=== PATIENT | male | born 1980 | race Caucasian/White ===

== ENCOUNTER 2019-03-01 20:19 | Emergency (ER) | payer OTHER ==
[~2019-03-01] VITALS: Ht 175.3 cm; Wt 82.6 kg
[2019-03-01] MEDS ORDERED: TRAZ-182 PO (20:57)
[2019-03-01] MEDS ORDERED: FLUO10CA26 PO (20:57)
[2019-03-01] MEDS ORDERED: PANT40TA4 PO (20:57)
[2019-03-01] MEDS ORDERED: LORAZEPAM 0.5 MG TABLET ONE (21:45)
[2019-03-01] MEDS ORDERED: LORAZEPAM 0.5 MG TABLET PO ONE (21:45)
--- NOTE | 2019-03-01 22:00 | NUR ---
Patient discharged to home in stable conditon. Written and verbal after care instructions given. Patient verbalizes understanding of instructions. Pt. d/c w/ prescription per MD order, d/c papers signed, all belongings w/ pt., ID band removed, instructed not to drive, ambulated off unit w/ steady gait, NAD
== END 2019-03-01 22:15 | disposition home or self-care (01) ==
LOC: ER 20:26
DX: K64.9 Unspecified hemorrhoids (principal); F41.9 Anxiety disorder, unspecified; Z79.899 Other long term (current) drug therapy
CPT/HCPCS: 93005; A4663